=== PATIENT | male | born 1995 | race Caucasian/White ===

== ENCOUNTER 2022-03-01 20:47 | Emergency (ER) | payer BC ==
[2022-03-01] MEDS ORDERED: Ketorolac 60 MG/2 ML SDV IM ONE (21:37)
== END 2022-03-01 23:00 | disposition home or self-care (01) ==
LOC: JD.ED 20:47
DX: S99.912A Unspecified injury of left ankle, initial encounter (principal); Z88.8 Allergy status to other drugs, medicaments and biological substances; Z79.899 Other long term (current) drug therapy
CPT/HCPCS: 73610; 73630; 96372; 99283; J1885